=== PATIENT | male | born 1950 | race Caucasian/White ===

== ENCOUNTER 2018-11-11 19:57 | Inpatient (IN) | payer MEDICARE ==
[~2018-11-11] VITALS: Ht 170.2 cm; Wt 87.7 kg
[2018-11-11] MEDS ORDERED: PIPERACILLIN/TAZ 3.375G PREMIX 50 ML IV ONE (21:15)
[2018-11-11] MEDS ORDERED: VANCOMYCIN 1 G PREMIX 200 ML IV ONE (21:15)
[2018-11-11] MEDS ORDERED: SODIUM CHLORIDE 0.9% 1000ML BAG (SEPSIS BOLUS) IV ONE (21:15)
[2018-11-11 21:33] LABS: CHLORIDE 108 mEq/L (98-107)
[2018-11-11 21:34] LABS: INR 1.1; PROTHROMBIN TIME 11.6 sec (9.6-11.0)
[2018-11-11 21:37] LABS: ETHANOL BLOOD < 10 mg/dL
[2018-11-11 21:41] LABS: HEMATOCRIT. 38.2 % (42.0-52.0); HEMOGLOBIN. 13.9 g/dL (14.0-18.0); MEAN CORPUSCULAR HEMOGLOBIN 42.4 pg (28.0-32.0); MEAN CORPUSCULAR VOLUME 116.9 fL (80.0-94.0); MEAN PLATELET VOLUME 7.8 fl (7.4-10.4); PLATELET 95 x1000/uL (130-400); RED BLOOD CELL COUNT 3.27 mill/uL (4.7-6.1); RED CELL DISTRIBUTION WIDTH 14.7 % (11.6-14.6)
[2018-11-11 21:47] LABS: PLATELET ESTIMATE DECREASED
[2018-11-11 22:01] LABS: CLARITY URINE CLEAR (CLEAR); COLOR URINE YELLOW (YELLOW); KETONES URINE TRACE (NEGATIVE); LEUKOCYTE ESTERASE URINE NEGATIVE (NEGATIVE); NITRITE URINE NEGATIVE (NEGATIVE); OCCULT BLOOD URINE 1+ (NEGATIVE); PROTEIN URINE NEGATIVE (NEGATIVE)
[2018-11-11 22:20] LABS: *AMPHETAMINES SCREEN URINE NEGATIVE (NEGATIVE); *COCAINE SCREEN URINE NEGATIVE (NEGATIVE); CANNABINOID URINE SCREEN NEGATIVE (NEGATIVE); METHADONE URINE SCREEN NEGATIVE (NEGATIVE); OPIATES URINE SCREEN NEGATIVE (NEGATIVE); PHENCYCLIDINE URINE SCREEN NEGATIVE (NEGATIVE)
[2018-11-11 22:21] LABS: *BARBITURATES SCREEN URINE NEGATIVE (NEGATIVE); *BENZODIAZEPINES SCREEN URINE NEGATIVE (NEGATIVE)
[2018-11-12] VITALS (33 sets, daily range): BP systolic 107–140; BP diastolic 51–111
[2018-11-12] MEDS ORDERED: SODIUM CHLORIDE 0.9% 1,000 ML IV ONE (00:20)
[2018-11-12] MEDS ORDERED: ACETAMINOPHEN 500MG TABLET PO ONE (00:30)
[2018-11-12] MEDS ORDERED: NOREPINEPHRINE 4MG/250ML PMX 250 ML IV ONE (00:45)
[2018-11-12] MEDS: ACETAMINOPHEN 325MG TABLET PO PRN ×2 (06:23→12:02)
[2018-11-12] MEDS: SODIUM CHLORIDE 0.9% 1,000 ML IV SCH ×2 (06:23→17:50)
[2018-11-12] MEDS ORDERED: FOLI1TAB3 MT (07:03)
[2018-11-12] MEDS ORDERED: CALC-1042 MT (07:03)
[2018-11-12] MEDS ORDERED: [UNRECOGNIZED DRUG - OTHER] (07:03)
[2018-11-12] MEDS ORDERED: PRED5TAB48 PO (07:03)
[2018-11-12 07:40] LABS: CHLORIDE 113 mEq/L (98-107)
[2018-11-12 07:42] LABS: BASOPHILS % 0.4 % (0.0-2.0); EOSINOPHILS % 1.3 % (0.0-5.0); HEMATOCRIT. 34.3 % (42.0-52.0); HEMOGLOBIN. 12.3 g/dL (14.0-18.0); LYMPHOCYTES % 7.6 % (20.0-50.0); MEAN CORPUSCULAR HEMOGLOBIN 42.3 pg (28.0-32.0); MEAN CORPUSCULAR VOLUME 117.6 fL (80.0-94.0); MEAN PLATELET VOLUME 7.9 fl (7.4-10.4); MONOCYTES % 12.3 % (2.0-8.0); NEUTROPHILS % 78.4 % (40.0-76.0); PLATELET 76 x1000/uL (130-400); RED BLOOD CELL COUNT 2.92 mill/uL (4.7-6.1); RED CELL DISTRIBUTION WIDTH 14.8 % (11.6-14.6)
[2018-11-12] MEDS ORDERED: ENOXAPARIN 40MG/0.4ML SYR SUBCUT SCH (09:00)
[2018-11-12] MEDS: PIPERACILLIN/TAZ 3.375G PREMIX 50 ML IV SCH ×3 (09:11→22:02)
[2018-11-12] MEDS: ASPIRIN 81MG TABLET PO SCH (09:43)
[2018-11-12] MEDS ORDERED: PIPERACILLIN/TAZOBACTAM 3.375GM/50ML PREMIX IV ONE (12:00)
[2018-11-12 13:45] LABS: T4 FREE 0.78 ng/dL (0.76-1.46)
[2018-11-12] MEDS ORDERED: IPRATROPIUM/ALBUTEROL 0.5-3(2.5)MG/3ML NEB HHN PRN (13:45)
[2018-11-12] MEDS ORDERED: LORAZEPAM 2MG/ML CPJ IV PRN (13:45)
[2018-11-12 17:27] LABS: CREATINE KINASE MB FRACTION 1.3 ng/mL (0.5-3.6)
[2018-11-12] MEDS: FAMOTIDINE 20MG TABLET PO SCH (17:51)
[2018-11-13] VITALS: BP 129/63
[2018-11-13 00:40] LABS: CREATINE KINASE 87 IU/L (39-308)
[2018-11-13 00:41] LABS: CREATINE KINASE MB FRACTION < 1.0 ng/mL (0.5-3.6)
[2018-11-13] MEDS: PIPERACILLIN/TAZ 3.375G PREMIX 50 ML IV SCH ×2 (05:48→09:08)
[2018-11-13 06:00] VITALS: BP 129/72
[2018-11-13 07:46] LABS: CREATINE KINASE 85 IU/L (39-308)
[2018-11-13 07:48] LABS: CREATINE KINASE MB FRACTION < 1.0 ng/mL (0.5-3.6)
[2018-11-13 08:00] VITALS: BP 119/68
[2018-11-13] MEDS: ASPIRIN 81MG TABLET PO SCH (09:08)
[2018-11-13] MEDS: SODIUM CHLORIDE 0.9% 1,000 ML IV SCH (09:08)
[2018-11-13] MEDS: FAMOTIDINE 20MG TABLET PO SCH (09:08)
[2018-11-13 12:00] VITALS: BP 128/72
[2018-11-13 14:26] VITALS: BP 128/72
== END 2018-11-13 15:18 | disposition home or self-care (01) | DRG 871 ==
LOC: ER 22:29 → CVICU 22:45 → EDBEDREQTM 22:55 → EDBEDREQ 22:55 → EDBEDREQSVC 22:55 → EDBEDREQTM 11-12 00:22 → EDBEDREQSVC 11-12 00:22 → EDBEDREQDT 11-12 00:22 → ENRESERV 11-12 01:50 → 5WST 11-12 18:31
PROVIDERS: ADMIT Internal Medicine; ATTEND Internal Medicine
PROC: 05HM33Z Insertion of Infusion Device into Right Internal Jugular Vein, Percutaneous Approach (ICD-10-PCS; principal; 2018-11-11)
PROC: B543ZZA Ultrasonography of Right Jugular Veins, Guidance (ICD-10-PCS; 2018-11-11)
DX: A41.9 Sepsis, unspecified organism (principal); J69.0 Pneumonitis due to inhalation of food and vomit; J96.00 Acute respiratory failure, unspecified whether with hypoxia or hypercapnia; R65.21 Severe sepsis with septic shock; K76.6 Portal hypertension; M30.1 Polyarteritis with lung involvement [Churg-Strauss]; E87.2 Acidosis; I67.82 Cerebral ischemia; K74.60 Unspecified cirrhosis of liver; E86.9 Volume depletion, unspecified; D69.6 Thrombocytopenia, unspecified; D64.9 Anemia, unspecified; E78.5 Hyperlipidemia, unspecified; F41.9 Anxiety disorder, unspecified; I10 Essential (primary) hypertension; J45.909 Unspecified asthma, uncomplicated; K57.90 Diverticulosis of intestine, part unspecified, without perforation or abscess without bleeding; N28.1 Cyst of kidney, acquired; R16.1 Splenomegaly, not elsewhere classified; Z79.899 Other long term (current) drug therapy
CPT/HCPCS: 36415; 36556; 71045; 74176; 78582; 80048; 80061; 80305; 80320; 82140; 82550; 82553; 83036; 83605; 83880; 84145; 84439; 84443; 84484; 85379; 93005; 93306; 93970; 94640; 96365; 96367; 99291; A9558; J2543; J3370; J3490; J7030; J7620; G0480

== ENCOUNTER 2020-02-04 20:45 | Inpatient (IN) | payer MEDICARE ==
[~2020-02-04] VITALS: Ht 177.8 cm; Wt 82.7 kg
[~2020-02-04 20:45] MED LIST: CALC-1042 MT; FOLI1TAB3 MT; PRED5TAB48 PO; [UNRECOGNIZED DRUG - OTHER]
[2020-02-04 22:31] LABS: BASOPHILS % 0.1 % (0.0-2.0); EOSINOPHILS % 2.5 % (0.0-5.0); HEMATOCRIT. 27.2 % (42.0-52.0); HEMOGLOBIN. 8.5 g/dL (14.0-18.0); LYMPHOCYTES % 12.7 % (20.0-50.0); MEAN CORPUSCULAR HEMOGLOBIN 29.7 pg (28.0-32.0); MONOCYTES % 9.4 % (2.0-8.0); NEUTROPHILS % 75.3 % (40.0-76.0); PLATELET 75 x1000/uL (130-400); RED BLOOD CELL COUNT 2.87 mill/uL (4.7-6.1); RED CELL DISTRIBUTION WIDTH 20.3 % (11.6-14.6)
[2020-02-04 22:34] LABS: CHLORIDE 110 mEq/L (98-107)
[2020-02-05 02:15] VITALS: BP 139/63
[2020-02-05] MEDS ORDERED: P20 PO (03:44)
[2020-02-05 04:00] VITALS: BP 119/64
[2020-02-05] MEDS ORDERED: IPRATROPIUM/ALBUTEROL 0.5-3(2.5)MG/3ML NEB HHN PRN (07:00)
[2020-02-05 08:00] VITALS: BP 109/61
[2020-02-05] MEDS: FUROSEMIDE 40MG/4ML VIAL IVP SCH (10:01)
[2020-02-05 12:00] VITALS: BP 122/63
[2020-02-05 14:43] LABS: CLARITY URINE CLEAR (CLEAR); COLOR URINE YELLOW (YELLOW); KETONES URINE NEGATIVE (NEGATIVE); LEUKOCYTE ESTERASE URINE NEGATIVE (NEGATIVE); NITRITE URINE NEGATIVE (NEGATIVE); OCCULT BLOOD URINE NEGATIVE (NEGATIVE); PROTEIN URINE NEGATIVE (NEGATIVE); SPECIFIC GRAVITY URINE 1.011 (1.005-1.030); UROBILINOGEN URINE 0.2 E.U./dL (0.2-1.0)
[2020-02-05 16:00] VITALS: BP 124/65
[2020-02-05] MEDS: SPIRONOLACTONE 25MG TABLET PO SCH (16:49)
[2020-02-05 20:00] VITALS: BP 110/59
[2020-02-06] VITALS: BP 120/60
[2020-02-06 04:00] VITALS: BP 123/67
[2020-02-06 06:56] LABS: HEPATITIS B SURFACE ANTIGEN NEGATIVE
[2020-02-06 07:26] LABS: HEPATITIS A AB IGM NEGATIVE (NEGATIVE)
[2020-02-06 08:00] VITALS: BP 139/63
[2020-02-06] MEDS: FUROSEMIDE 40MG/4ML VIAL IVP SCH (08:49)
[2020-02-06] MEDS: SPIRONOLACTONE 25MG TABLET PO SCH (08:49)
[2020-02-06 12:00] VITALS: BP 106/58
[2020-02-06 13:37] LABS: INR 1.2; PROTHROMBIN TIME 12.2 sec (9.6-11.0)
[2020-02-06] MEDS ORDERED: BRIM5DRO6 EACHEYE (15:23)
[2020-02-06] MEDS ORDERED: DORZ10DR9 EACHEYE (15:23)
[2020-02-06 16:00] VITALS: BP 135/71
[2020-02-06 16:14] LABS: BASOPHILS % 0.4 % (0.0-2.0); EOSINOPHILS % 2.8 % (0.0-5.0); HEMATOCRIT. 28.3 % (42.0-52.0); HEMOGLOBIN. 9.1 g/dL (14.0-18.0); LYMPHOCYTES % 12.3 % (20.0-50.0); MEAN CORPUSCULAR HEMOGLOBIN 29.9 pg (28.0-32.0); MEAN PLATELET VOLUME 7.9 fl (7.4-10.4); MONOCYTES % 9.2 % (2.0-8.0); NEUTROPHILS % 75.3 % (40.0-76.0); PLATELET 70 x1000/uL (130-400); RED BLOOD CELL COUNT 3.05 mill/uL (4.7-6.1)
[2020-02-06] MEDS ORDERED: DORZOLAM/TIMOLOL 2.23/0.68% OPHTH DROPS 10ML EACHEYE SCH (17:00)
[2020-02-06] MEDS ORDERED: MEDICATION NOT ON FORMULARY EA (Brimonidine Tartrate 1 DROP) EACHEYE SCH (17:00)
[2020-02-06 20:00] VITALS: BP 127/67
[2020-02-06] MEDS: BRIMONIDINE 0.2% OPHTH DROPS 5ML BOTHEYE SCH (21:29)
[2020-02-06] MEDS: DORZOLAMIDE 2% OPHTH 10 ML BOTTLE BOTHEYE SCH (21:29)
[2020-02-07] VITALS: BP 100/62
[2020-02-07 04:00] VITALS: BP 110/69
[2020-02-07] MEDS: BRIMONIDINE 0.2% OPHTH DROPS 5ML BOTHEYE SCH (05:07)
[2020-02-07] MEDS: DORZOLAMIDE 2% OPHTH 10 ML BOTTLE BOTHEYE SCH (05:07)
[2020-02-07 07:28] LABS: BASOPHILS % 0.5 % (0.0-2.0); EOSINOPHILS % 3.7 % (0.0-5.0); HEMATOCRIT. 27.8 % (42.0-52.0); HEMOGLOBIN. 8.9 g/dL (14.0-18.0); MEAN CORPUSCULAR VOLUME 93.6 fL (80.0-94.0); MEAN PLATELET VOLUME 7.5 fl (7.4-10.4); MONOCYTES % 11.9 % (2.0-8.0); NEUTROPHILS % 66.9 % (40.0-76.0); PLATELET 61 x1000/uL (130-400); RED BLOOD CELL COUNT 2.97 mill/uL (4.7-6.1); RED CELL DISTRIBUTION WIDTH 21.1 % (11.6-14.6)
[2020-02-07 07:31] LABS: CHLORIDE 108 mEq/L (98-107)
[2020-02-07 08:00] VITALS: BP 109/61
[2020-02-07] MEDS: SPIRONOLACTONE 25MG TABLET PO SCH (09:59)
[2020-02-07] MEDS: FUROSEMIDE 40MG/4ML VIAL IVP SCH (10:07)
[2020-02-07 12:20] VITALS: BP 109/61
[2020-02-07 12:22] VITALS: BP 119/72
== END 2020-02-07 14:02 | disposition home or self-care (01) | DRG 433 ==
LOC: ER 20:45 → 6WST 02-05 01:03 → EDBEDREQ 02-05 01:08 → EDBEDREQTM 02-05 01:08 → EDBEDREQDT 02-05 01:08 → ENRESERV 02-05 01:43
PROVIDERS: ADMIT Internal Medicine; ATTEND Internal Medicine
DX: K70.31 Alcoholic cirrhosis of liver with ascites (principal); E44.1 Mild protein-calorie malnutrition; N49.2 Inflammatory disorders of scrotum; D69.6 Thrombocytopenia, unspecified; N28.1 Cyst of kidney, acquired; R74.0 Nonspecific elevation of levels of transaminase and lactic acid dehydrogenase [LDH]; F10.10 Alcohol abuse, uncomplicated; Y90.9 Presence of alcohol in blood, level not specified; R16.1 Splenomegaly, not elsewhere classified; I10 Essential (primary) hypertension; Z68.26 Body mass index [BMI] 26.0-26.9, adult; Z86.79 Personal history of other diseases of the circulatory system
CPT/HCPCS: 36415; 71045; 76700; 76870; 80053; 81003; 83036; 83880; 84484; 85025; 86705; 86709; 86803; 87340; 93005; 93306; 93976; 99285; J1940

== ENCOUNTER 2022-05-06 11:12 | Inpatient (IN) | payer MEDICARE ==
[~2022-05-06] VITALS: Ht 177.8 cm; Wt 84.4 kg
[~2022-05-06 11:12] MED LIST changes: +AZAT50TA24 PO; +BRESALTEC; +BRIM5DRO6 EACHEYE; +DORZ10DR8 EACHEYE; +DORZ10DR9 EACHEYE; +FE300LUD PO; +METF-414 PO; +METH2.5T PO; +ONDA4TAB50 PO; +OXYM30SP26 BOTHNSTRLS; +P20 PO; +PANADOL; +PRED10TA23 PO; -PRED5TAB48 PO; +SULI200T4 PO; +TIMO5DRO32 EACHEYE
[2022-05-06] MEDS ORDERED: ALBUTEROL (0.083%) 2.5MG/3ML NEB HHN STA ×2 (17:36→18:51)
[2022-05-06] MEDS ORDERED: IPRATROPIUM BROMIDE (0.02%) 0.5MG/2.5ML NEB HHN STA ×2 (17:36→18:51)
[2022-05-06] MEDS ORDERED: PREDNISONE 20MG TABLET PO STA (17:36)
[2022-05-06] MEDS ORDERED: MAGNESIUM 2 G PREMIX 50 ML IV ONE (19:00)
[2022-05-06 19:06] LABS: HEMATOCRIT. 39.3 % (42.0-52.0); HEMOGLOBIN. 14.1 g/dL (14.0-18.0); MEAN CORPUSCULAR HEMOGLOBIN 40.5 pg (28.0-32.0); MEAN PLATELET VOLUME 8.1 fl (7.4-10.4); PLATELET 100 x1000/uL (130-400); RED BLOOD CELL COUNT 3.48 mill/uL (4.7-6.1); RED CELL DISTRIBUTION WIDTH 14.8 % (11.6-14.6)
[2022-05-06 19:27] LABS: CHLORIDE 107 mEq/L (98-107)
[2022-05-07] VITALS (8 sets, daily range): BP systolic 112–135; BP diastolic 57–99
[2022-05-07] MEDS ORDERED: CLONIDINE 0.1MG TABLET PO PRN (04:30)
[2022-05-07] MEDS ORDERED: DEXTROSE 50% WATER 50ML SYRINGE IV PRN (04:30)
[2022-05-07] MEDS ORDERED: ACETAMINOPHEN 650MG/20.3ML UDC PO PRN (04:30)
[2022-05-07] MEDS ORDERED: METHYLPREDNISOLONE SOD SUCC 40 MG/ML VIAL IV SCH (04:30)
[2022-05-07] MEDS ORDERED: IPRATROPIUM/ALBUTEROL 0.5-3(2.5)MG/3ML NEB HHN PRN (04:30)
[2022-05-07 05:06] LABS: PLATELET ESTIMATE DECREASED
[2022-05-07] MEDS ORDERED: BLOOD SUGAR DIAGNOSTIC STRIP TEST SCH (06:40)
[2022-05-07] MEDS ORDERED: INSULIN LISPRO 100 UNITS/ML SUBCUT SCH (07:10)
[2022-05-07] MEDS ORDERED: BUDESONIDE 0.5MG/2ML NEB HHN SCH (08:00)
[2022-05-07] MEDS ORDERED: FAMOTIDINE 20MG TABLET PO SCH (09:00)
[2022-05-07] MEDS ORDERED: FAMO20TA8 MT (12:08)
[2022-05-07] MEDS ORDERED: ALBU18HF2 IH (12:08)
[2022-05-07] MEDS ORDERED: MED4 MT (12:08)
[2022-05-07 14:37] LABS: BASOPHILS % 0.3 % (0.0-2.0); EOSINOPHILS % 0.3 % (0.0-5.0); HEMATOCRIT. 35.2 % (42.0-52.0); HEMOGLOBIN. 12.5 g/dL (14.0-18.0); LYMPHOCYTES % 11.2 % (20.0-50.0); MEAN CORPUSCULAR HEMOGLOBIN 40.2 pg (28.0-32.0); MEAN CORPUSCULAR VOLUME 113.3 fL (80.0-94.0); MEAN PLATELET VOLUME 7.2 fl (7.4-10.4); MONOCYTES % 5.7 % (2.0-8.0); NEUTROPHILS % 82.5 % (40.0-76.0); PLATELET 72 x1000/uL (130-400); RED BLOOD CELL COUNT 3.11 mill/uL (4.7-6.1); RED CELL DISTRIBUTION WIDTH 14.6 % (11.6-14.6)
[2022-05-07 14:47] LABS: CHLORIDE 108 mEq/L (98-107)
[2022-05-07] MEDS ORDERED: INFLUENZA VACCINE 05/PF 0.5 ML SYRINGE IM ONE (15:00)
== END 2022-05-07 16:51 | disposition home or self-care (01) | DRG 189 ==
LOC: ER 11:12 → 7EST 22:43 → ENRESERV 05-07 01:17
PROVIDERS: ADMIT Internal Medicine; ATTEND Internal Medicine
DX: J96.00 Acute respiratory failure, unspecified whether with hypoxia or hypercapnia (principal); J45.901 Unspecified asthma with (acute) exacerbation; I10 Essential (primary) hypertension; E11.65 Type 2 diabetes mellitus with hyperglycemia; R74.01 Elevation of levels of liver transaminase levels; Z20.822 Contact with and (suspected) exposure to COVID-19; D72.10 Eosinophilia, unspecified; D69.6 Thrombocytopenia, unspecified; Z79.84 Long term (current) use of oral hypoglycemic drugs; Z79.899 Other long term (current) drug therapy
CPT/HCPCS: 36415; 71045; 80048; 80053; 82962; 83036; 83880; 84484; 85025; 87426; 93005; 94640; 99285; C9803; J1815; J2920; J3475; J7512

== ENCOUNTER 2023-07-16 17:30 | Emergency (ER) | payer MEDICARE ==
[~2023-07-16] VITALS: Ht 182.9 cm; Wt 81.0 kg
[~2023-07-16 17:30] MED LIST changes: +ALBU18HF2 IH; -BRESALTEC; +FAMO20TA8 MT; +MED4 MT; -PANADOL; -[UNRECOGNIZED DRUG - OTHER]
[2023-07-16 17:33] VITALS: BP 141/68; TEMP 98.3; O2SAT 95
[2023-07-16 18:08] LABS: HEMATOCRIT. 36.3 % (42.0-52.0); HEMOGLOBIN. 12.7 g/dL (14.0-18.0); MEAN CORPUSCULAR HEMOGLOBIN 39.5 pg (28.0-32.0); MEAN CORPUSCULAR HGB CONC 35.1 g/dL (31.0-37.0); MEAN CORPUSCULAR VOLUME 112.8 fL (80.0-94.0); MEAN PLATELET VOLUME 7.3 fl (7.4-10.4); PLATELET 101 x1000/uL (130-400); RED BLOOD CELL COUNT 3.22 mill/uL (4.7-6.1); RED CELL DISTRIBUTION WIDTH 16.1 % (11.6-14.6); WHITE BLOOD COUNT 7.1 x1000/uL (4.5-11.0)
[2023-07-16 18:11] LABS: DIFFERENTIAL COMMENT 1
[2023-07-16 18:13] LABS: CLARITY URINE CLEAR (CLEAR); COLOR URINE DARK YELLOW (YELLOW); GLUCOSE URINE NEGATIVE (NEGATIVE); KETONES URINE NEGATIVE (NEGATIVE); LEUKOCYTE ESTERASE URINE NEGATIVE (NEGATIVE); NITRITE URINE NEGATIVE (NEGATIVE); OCCULT BLOOD URINE 1+ (NEGATIVE); PROTEIN URINE NEGATIVE (NEGATIVE); SPECIFIC GRAVITY URINE 1.019 (1.005-1.030)
[2023-07-16 18:24] LABS: WBC URINE 0-2 /hpf (0-2)
[2023-07-16 18:25] LABS: BACTERIA URINE NONE SEEN; SQUAMOUS EPITHELIAL CELL URINE NONE SEEN /lpf (RARE/1+)
[2023-07-16 18:25] LABS: ALANINE AMINOTRANSFERASE 39 IU/L (10-49); ALBUMIN 3.1 g/dL (3.2-4.8); ASPARTATE AMINOTRANSFERASE 57 IU/L (<34); BILIRUBIN TOTAL 1.8 mg/dL (0.1-1.0); CALCIUM 8.6 mg/dL (8.7-10.4); CARBON DIOXIDE 24 mEq/L (21-32); CHLORIDE 107 mEq/L (98-107); CREATININE 0.7 mg/dL (0.6-1.3); GLUCOSE 113 mg/dL (70-105); POTASSIUM 3.9 mEq/L (3.5-5.1); PROTEIN TOTAL 6.2 g/dL (6.0-8.3); SODIUM 136 mEq/L (136-145); UREA NITROGEN BLOOD 11 mg/dL (9-23)
[2023-07-16 18:26] LABS: INR 1.2; PROTHROMBIN TIME 13.2 sec (9.6-11.0)
[2023-07-16 18:31] LABS: TROPONIN I HIGH SENSITIVITY < 4 ng/L (3.0-53)
[2023-07-16 18:41] LABS: ATYPICAL LYMPHOCYTES 1; PLATELET ESTIMATE NORMAL
[2023-07-16] MEDS ORDERED: IPRATROPIUM/ALBUTEROL 0.5-3(2.5)MG/3ML NEB HHN ONE (20:30)
[2023-07-16 22:34] VITALS: PULSE 104; RESP 18
[2023-07-16] MEDS ORDERED: DEXAMETHASONE 10 MG/ML VIAL PO ONE (22:45)
== END 2023-07-17 00:05 | disposition home or self-care (01) ==
LOC: ER 17:30
DX: J44.1 Chronic obstructive pulmonary disease with (acute) exacerbation (principal); E11.9 Type 2 diabetes mellitus without complications; I10 Essential (primary) hypertension; I77.6 Arteritis, unspecified
CPT/HCPCS: 99285; 71045; 80053; 81003; 85025; 85610; 84484; 36415; 94640; 93005; J1100

== ENCOUNTER 2024-07-02 14:03 | Emergency (ER) | payer MEDICARE ==
[~2024-07-02] VITALS: Ht 182.9 cm; Wt 92.0 kg
[~2024-07-02 14:03] MED LIST changes: -MED4 MT; +METH4TAB95 MT
[2024-07-02 14:15] VITALS: O2SAT 99
[2024-07-02 14:18] VITALS: BP 165/90; PULSE 89; RESP 18; TEMP 98.3; O2SAT 98
[2024-07-02] MEDS ORDERED: CEPH500C2 MT (16:56)
[2024-07-02] MEDS ORDERED: ONDA-239 PO (16:57)
== END 2024-07-02 17:11 | disposition home or self-care (01) ==
LOC: ER 14:03
DX: S80.821A Blister (nonthermal), right lower leg, initial encounter (principal); E11.9 Type 2 diabetes mellitus without complications; E78.5 Hyperlipidemia, unspecified; I10 Essential (primary) hypertension; J44.89 Other specified chronic obstructive pulmonary disease; Z96.659 Presence of unspecified artificial knee joint; X58.XXXA Exposure to other specified factors, initial encounter; Y93.89 Activity, other specified; Y92.89 Other specified places as the place of occurrence of the external cause; Y99.8 Other external cause status
CPT/HCPCS: 10060; 99283

== ENCOUNTER 2024-07-06 07:50 | Emergency (ER) | payer MEDICARE ==
[~2024-07-06] VITALS: Ht 177.8 cm; Wt 93.0 kg
[~2024-07-06 07:50] MED LIST changes: +CEPH500C2 MT; +ONDA-239 PO
[2024-07-06 10:43] LABS: HEMATOCRIT. 31.9 % (42.0-52.0); HEMOGLOBIN. 11.3 g/dL (14.0-18.0); MEAN CORPUSCULAR HEMOGLOBIN 43.4 pg (28.0-32.0); MEAN CORPUSCULAR HGB CONC 35.4 g/dL (31.0-37.0); MEAN CORPUSCULAR VOLUME 122.9 fL (80.0-94.0); MEAN PLATELET VOLUME 7.3 fl (7.4-10.4); PLATELET 129 x1000/uL (130-400); RED CELL DISTRIBUTION WIDTH 18.3 % (11.6-14.6); WHITE BLOOD COUNT 6.5 x1000/uL (4.5-11.0)
[2024-07-06 10:47] LABS: DIFFERENTIAL COMMENT 1
[2024-07-06] MEDS: PREDNISONE 20MG TABLET PO ONE (10:50)
[2024-07-06 10:52] LABS: CHLORIDE 107 mEq/L (98-107); POTASSIUM 4.1 mEq/L (3.5-5.1); SODIUM 139 mEq/L (136-145)
[2024-07-06 10:53] LABS: CARBON DIOXIDE 23 mEq/L (21-32)
[2024-07-06 10:54] LABS: CALCIUM 8.7 mg/dL (8.7-10.4)
[2024-07-06 10:58] LABS: CREATININE 0.7 mg/dL (0.6-1.3); GLUCOSE 147 mg/dL (70-105)
[2024-07-06 10:59] LABS: UREA NITROGEN BLOOD 13 mg/dL (9-23)
[2024-07-06 11:00] LABS: ALANINE AMINOTRANSFERASE 40 IU/L (10-49); ASPARTATE AMINOTRANSFERASE 45 IU/L (<34)
[2024-07-06 11:01] LABS: BILIRUBIN TOTAL 3.2 mg/dL (0.1-1.0); PROTEIN TOTAL 5.7 g/dL (6.0-8.3)
[2024-07-06 11:05] VITALS: PULSE 78; RESP 24; O2SAT 98
[2024-07-06] MEDS: IPRATROPIUM BROMIDE (0.02%) 0.5MG/2.5ML NEB HHN ONE (11:05)
[2024-07-06] MEDS: ALBUTEROL (0.083%) 2.5MG/3ML NEB HHN ONE (11:05)
[2024-07-06 11:59] LABS: ANISOCYTOSIS 1+; PLATELET ESTIMATE SLIGHTLY DECREASED
[2024-07-06] MEDS ORDERED: ALBU18HF2 IH (13:39)
[2024-07-06] MEDS ORDERED: PRED10TA MT (13:39)
[2024-07-06 13:41] VITALS: BP 141/67; PULSE 73; RESP 18; TEMP 36.83628; O2SAT 97
[2024-07-07] MEDS ORDERED: P50 MT (08:26)
== END 2024-07-06 15:08 | disposition home or self-care (01) ==
LOC: ER 07:50
DX: J45.901 Unspecified asthma with (acute) exacerbation (principal); S80.821A Blister (nonthermal), right lower leg, initial encounter; E11.9 Type 2 diabetes mellitus without complications; I10 Essential (primary) hypertension; J45.909 Unspecified asthma, uncomplicated; Z98.890 Other specified postprocedural states; Z79.899 Other long term (current) drug therapy; X58.XXXA Exposure to other specified factors, initial encounter; Y93.89 Activity, other specified; Y92.89 Other specified places as the place of occurrence of the external cause; Y99.8 Other external cause status
CPT/HCPCS: 99285; 71045; 80053; 83880; 85025; 85651; 36415; 94640; 93005; J7512; 94070

== ENCOUNTER 2024-07-07 06:32 | Emergency (ER) | payer MEDICARE ==
[~2024-07-07] VITALS: Ht 177.8 cm; Wt 87.0 kg
[~2024-07-07 06:32] MED LIST changes: +PRED10TA MT
[2024-07-07 06:35] VITALS: O2SAT 100
[2024-07-07] MEDS: ALBUTEROL (0.083%) 2.5MG/3ML NEB HHN SCH (07:45)
[2024-07-07] MEDS: IPRATROPIUM BROMIDE (0.02%) 0.5MG/2.5ML NEB HHN STA (07:45)
[2024-07-07] MEDS: PREDNISONE 20MG TABLET PO ONE (07:54)
[2024-07-07] MEDS ORDERED: P50 MT (08:26)
[2024-07-07 09:15] VITALS: BP 120/58; PULSE 72; RESP 13; TEMP 36.89184; O2SAT 99
== END 2024-07-07 10:43 | disposition home or self-care (01) ==
LOC: ER 06:52
DX: J45.901 Unspecified asthma with (acute) exacerbation (principal); I10 Essential (primary) hypertension; E11.9 Type 2 diabetes mellitus without complications; Z96.659 Presence of unspecified artificial knee joint; Z79.899 Other long term (current) drug therapy
CPT/HCPCS: 99291; 71045; 94640; 93005; J7512; A4663; A4606

== ENCOUNTER 2024-10-01 08:56 | Inpatient (IN) | payer OTHER, MEDICARE ==
[2024-10-01] VITALS (10 sets, daily range): BP systolic 90–103; BP diastolic 57–60; PULSE 70–88; RESP 17–20; TEMP 36.2–36.3; O2SAT 94–99
[~2024-10-01] VITALS: Ht 177.8 cm; Wt 32.7 kg
[~2024-10-01 08:56] MED LIST changes: +ALBU2.5V13 NEB; +APIX5TAB PO; +FERR-63 PO; +FOLI-43 PO; -FOLI1TAB3 MT; +FURO40TA5 PO; +MECL-299 PO; +METF-1149 PO; -METF-414 PO; -METH4TAB95 MT; -ONDA4TAB50 PO; -OXYM30SP26 BOTHNSTRLS; -P20 PO; -PRED10TA MT; -PRED10TA23 PO; +PROP10TA10 PO; +SPIR100T5 PO
[2024-10-01] MEDS: IPRATROPIUM BROMIDE (0.02%) 0.5MG/2.5ML NEB HHN STA (09:45)
[2024-10-01] MEDS: ALBUTEROL (0.083%) 2.5MG/3ML NEB HHN SCH (09:46)
[2024-10-01] MEDS: METHYLPREDNISOLONE SOD SUCC 125MG/2ML (ACT-O-VIAL) IV STA (09:56)
[2024-10-01 10:01] LABS: HEMATOCRIT. 31.6 % (42.0-52.0); HEMOGLOBIN. 10.8 g/dL (14.0-18.0); MEAN CORPUSCULAR HEMOGLOBIN 41.3 pg (28.0-32.0); MEAN CORPUSCULAR HGB CONC 34.2 g/dL (31.0-37.0); MEAN CORPUSCULAR VOLUME 120.8 fL (80.0-94.0); MEAN PLATELET VOLUME 6.9 fl (7.4-10.4); PLATELET 109 x1000/uL (130-400); RED BLOOD CELL COUNT 2.61 mill/uL (4.7-6.1); RED CELL DISTRIBUTION WIDTH 17.8 % (11.6-14.6); WHITE BLOOD COUNT 7.6 x1000/uL (4.5-11.0)
[2024-10-01 10:08] LABS: CHLORIDE 104 mEq/L (98-107); DIFFERENTIAL COMMENT 1; POTASSIUM 4.7 mEq/L (3.5-5.1); SODIUM 132 mEq/L (136-145)
[2024-10-01 10:09] LABS: CALCIUM 8.8 mg/dL (8.7-10.4); CARBON DIOXIDE 21 mEq/L (21-32)
[2024-10-01 10:14] LABS: CREATININE 1.3 mg/dL (0.6-1.3); GLUCOSE 95 mg/dL (70-105); UREA NITROGEN BLOOD 18 mg/dL (9-23)
[2024-10-01 10:15] LABS: TROPONIN I HIGH SENSITIVITY 4 ng/L (3.0-53)
[2024-10-01 10:16] LABS: ALANINE AMINOTRANSFERASE 21 IU/L (10-49); ALBUMIN 2.7 g/dL (3.2-4.8); ASPARTATE AMINOTRANSFERASE 41 IU/L (<34); BILIRUBIN DIRECT 1.3 mg/dL (<=3.0); BILIRUBIN TOTAL 3.4 mg/dL (0.1-1.0); PROTEIN TOTAL 7.3 g/dL (6.0-8.3)
[2024-10-01] MEDS: AZITHROMYCIN 500MG/250ML 250 ML IV STA (12:11)
[2024-10-01] MEDS: CEFTRIAXONE 1GM/50ML 50 ML IV ONE (12:38)
[2024-10-01 12:41] LABS: ANISOCYTOSIS 1+; PLATELET ESTIMATE DECREASED
[2024-10-01] MEDS ORDERED: HYDROCODONE/ACETAMINOPHEN 5/325MG TABLET PO PRN (13:15)
[2024-10-01] MEDS ORDERED: NA PHOS,M-B/NA PHOS,DI-BA ENEMA 118ML PR PRN (13:15)
[2024-10-01] MEDS ORDERED: DOCUSATE SODIUM 100MG CAPSULE PO PRN (13:15)
[2024-10-01] MEDS ORDERED: ONDANSETRON HCL 4MG/2ML INJ IV PRN (13:15)
[2024-10-01] MEDS ORDERED: MAGNESIUM/ALUMINUM HYDROXIDE/SIMETHICONE 30ML UDC PO PRN (13:15)
[2024-10-01] MEDS ORDERED: CLONIDINE 0.1MG TABLET PO PRN (13:15)
[2024-10-01] MEDS ORDERED: ACETAMINOPHEN 325MG TABLET PO PRN ×2 (13:15)
[2024-10-01] MEDS ORDERED: DEXTROSE 50% WATER 50ML SYRINGE IV PRN (13:15)
[2024-10-01] MEDS: THIAMINE HCL 100MG TABLET PO SCH (14:38)
[2024-10-01] MEDS ORDERED: SODIUM CHLORIDE 0.9% 500 ML IV ONE (14:45)
[2024-10-01] MEDS ORDERED: CALCIUM CHLORIDE 1GM/10ML SYR IV NR (15:07)
[2024-10-01] MEDS ORDERED: INSULIN REGULAR (HUMULIN R) 1000UNITS/10ML VIAL IV NR (15:07)
[2024-10-01] MEDS ORDERED: SODIUM BICARBONATE 8.4% 50MEQ/50ML SYR IV NR (15:07)
[2024-10-01] MEDS ORDERED: DEXTROSE 50% WATER 50ML SYRINGE IV NR (15:07)
[2024-10-01] MEDS: IPRATROPIUM/ALBUTEROL 0.5-3(2.5)MG/3ML NEB HHN PRN (15:29)
[2024-10-01] MEDS: CARVEDILOL 3.125 MG TABLET PO NR (15:37)
[2024-10-01] MEDS: GUAIFENESIN 200MG/10ML SUGAR FREE UDC PO PRN (15:38)
[2024-10-01] MEDS: SODIUM CHLORIDE 0.9% 500 ML IV NR (16:10)
[2024-10-01] MEDS: BLOOD SUGAR DIAGNOSTIC STRIP TEST SCH (17:03)
[2024-10-01 18:41] LABS: INR 1.3; PARTIAL THROMBOPLASTIN TIME 33.8 sec (23.4-31.0); PROTHROMBIN TIME 13.8 sec (9.6-11.0)
[2024-10-01 18:42] LABS: CREATINE KINASE 47 IU/L (46-171)
[2024-10-01 18:49] LABS: TROPONIN I HIGH SENSITIVITY < 4 ng/L (3.0-53)
[2024-10-01 19:12] LABS: LACTIC ACID 3.1 mmol/L (0.4-2.0)
[2024-10-01] MEDS ORDERED: NALOXONE HCL 0.4MG/ML VIAL IV PRN (19:30)
[2024-10-01 20:29] LABS: CLARITY URINE CLEAR (CLEAR); COLOR URINE ORANGE (YELLOW); GLUCOSE URINE NEGATIVE (NEGATIVE); KETONES URINE TRACE (NEGATIVE); LEUKOCYTE ESTERASE URINE TRACE (NEGATIVE); NITRITE URINE NEGATIVE (NEGATIVE); OCCULT BLOOD URINE TRACE (NEGATIVE); PROTEIN URINE TRACE (NEGATIVE); SPECIFIC GRAVITY URINE 1.023 (1.005-1.030); UROBILINOGEN URINE 0.2 E.U./dL (0.2-1.0)
[2024-10-01] MEDS: SODIUM CHLORIDE 0.9% 1,000 ML IV NR (20:32)
[2024-10-01 20:46] LABS: *AMPHETAMINES SCREEN URINE NEGATIVE (NEGATIVE); *BARBITURATES SCREEN URINE NEGATIVE (NEGATIVE); *BENZODIAZEPINES SCREEN URINE NEGATIVE (NEGATIVE); *COCAINE SCREEN URINE NEGATIVE (NEGATIVE); CANNABINOID URINE SCREEN NEGATIVE (NEGATIVE); METHADONE URINE SCREEN NEGATIVE (NEGATIVE); OPIATES URINE SCREEN NEGATIVE (NEGATIVE)
[2024-10-01 20:47] LABS: ECSTASY MDMA SCREEN URINE NEGATIVE (NEGATIVE); PHENCYCLIDINE URINE SCREEN NEGATIVE (NEGATIVE)
[2024-10-01] MEDS: ENOXAPARIN 40MG/0.4ML SYR SUBCUT SCH (20:56)
[2024-10-01 21:25] LABS: BACTERIA URINE TRACE; RBC URINE 0-2 /hpf (0-2); SQUAMOUS EPITHELIAL CELL URINE NONE SEEN /lpf (RARE/1+); WBC URINE 0-2 /hpf (0-2)
[2024-10-01] MEDS: ALBUMIN HUMAN 25GM/100ML (25%) IV NR (21:36)
[2024-10-01] MEDS: FAMOTIDINE 20MG TABLET PO SCH (21:36)
[2024-10-01] MEDS: METHYLPREDNISOLONE SOD SUCC 125MG/2ML (ACT-O-VIAL) IV SCH (21:37)
[2024-10-01] MEDS: IPRATROPIUM/ALBUTEROL 0.5-3(2.5)MG/3ML NEB HHN SCH (21:45)
[2024-10-01] MEDS: IPRATROPIUM/ALBUTEROL 0.5-3(2.5)MG/3ML NEB HHN NR (21:45)
[2024-10-01] MEDS: BUDESONIDE 0.5MG/2ML NEB HHN SCH (21:46)
[2024-10-01 22:15] LABS: CREATINE KINASE 41 IU/L (46-171); TROPONIN I HIGH SENSITIVITY < 4 ng/L (3.0-53)
[2024-10-02] VITALS (9 sets, daily range): BP systolic 86–97; BP diastolic 47–65; PULSE 70–86; RESP 14–20; TEMP 36–36.4; O2SAT 96–99
[2024-10-02] MEDS: DEXT 5%/0.9% NACL 1,000 ML IV SCH (01:32)
[2024-10-02] MEDS: MIDODRINE HCL 5MG TABLET PO SCH (05:34)
[2024-10-02 12:15] LABS: BASOPHILS % 0.1 % (0.0-2.0); HEMOGLOBIN. 8.4 g/dL (14.0-18.0); LYMPHOCYTES % 8.2 % (20.0-50.0); MEAN CORPUSCULAR HEMOGLOBIN 40.4 pg (28.0-32.0); MEAN CORPUSCULAR HGB CONC 33.8 g/dL (31.0-37.0); MEAN CORPUSCULAR VOLUME 119.6 fL (80.0-94.0); MEAN PLATELET VOLUME 7.1 fl (7.4-10.4); MONOCYTES % 5.1 % (2.0-8.0); NEUTROPHILS % 86.6 % (40.0-76.0); PLATELET 54 x1000/uL (130-400); RED BLOOD CELL COUNT 2.09 mill/uL (4.7-6.1); RED CELL DISTRIBUTION WIDTH 17.9 % (11.6-14.6); WHITE BLOOD COUNT 3.6 x1000/uL (4.5-11.0)
[2024-10-02 12:24] LABS: DIFFERENTIAL COMMENT 1
[2024-10-02 12:25] LABS: ADD RBC MORPHOLOGY NO
[2024-10-02 12:27] LABS: CALCIUM 8.4 mg/dL (8.7-10.4); CARBON DIOXIDE 19 mEq/L (21-32); CHLORIDE 105 mEq/L (98-107); POTASSIUM 4.8 mEq/L (3.5-5.1); SODIUM 132 mEq/L (136-145)
[2024-10-02 12:30] LABS: INR 1.3; PROTHROMBIN TIME 13.5 sec (9.6-11.0)
[2024-10-02 12:31] LABS: AMMONIA < 17 uMol/L (<32)
[2024-10-02 12:32] LABS: CREATININE 1.2 mg/dL (0.6-1.3); GLUCOSE 113 mg/dL (70-105); IRON 61 ug/dL (65-175)
[2024-10-02 12:33] LABS: LDL CHOLESTEROL 62 mg/dL (5-100); TRIGLYCERIDE 88 mg/dL (0-150); UREA NITROGEN BLOOD 26 mg/dL (9-23)
[2024-10-02 12:34] LABS: ALANINE AMINOTRANSFERASE 16 IU/L (10-49); ALBUMIN 2.5 g/dL (3.2-4.8); ASPARTATE AMINOTRANSFERASE 26 IU/L (<34); T4 FREE 0.87 ng/dL (0.89-1.76)
[2024-10-02 12:35] LABS: BILIRUBIN DIRECT 0.6 mg/dL (<=3.0); BILIRUBIN TOTAL 1.4 mg/dL (0.1-1.0); CHOLESTEROL 102 mg/dL (<200); HDL CHOLESTEROL < 20 mg/dL (>55); PROTEIN TOTAL 6.4 g/dL (6.0-8.3); T4 FREE 0.84 ng/dL (0.89-1.76); THYROID STIMULATING HORMONE 0.53 uIU/mL (0.55-4.78); THYROID STIMULATING HORMONE 0.54 uIU/mL (0.55-4.78); TOTAL IRON BINDING CAPACITY 201 ug/dl (250-425)
[2024-10-02 13:09] LABS: FOLIC ACID (FOLATE) SERUM 13.91 ng/mL (>5.38)
[2024-10-02 13:12] LABS: FERRITIN 88 ng/mL (22-322); VITAMIN B12 SERUM 1738 pg/mL (211-911)
[2024-10-02 13:21] LABS: HEPATITIS B SURFACE ANTIGEN NEGATIVE (Negative)
[2024-10-02 13:42] LABS: HEPATITIS A AB IGM NEGATIVE (Negative); HEPATITIS B CORE AB IGM NEGATIVE (Negative)
[2024-10-02 13:43] LABS: HEPATITIS C AB NON REACTIVE (Neg) (Negative)
[2024-10-02] MEDS: ALBUMIN HUMAN 25GM/100ML (25%) IV NR (16:35)
[2024-10-03] VITALS (13 sets, daily range): BP systolic 92–111; BP diastolic 51–63; PULSE 66–88; RESP 16–20; TEMP 36.3–37.16964; O2SAT 95–100
[2024-10-03 03:52] LABS: CHLORIDE 109 mEq/L (98-107); POTASSIUM 4.7 mEq/L (3.5-5.1); SODIUM 135 mEq/L (136-145)
[2024-10-03 03:53] LABS: CALCIUM 8.5 mg/dL (8.7-10.4); CARBON DIOXIDE 20 mEq/L (21-32)
[2024-10-03 03:58] LABS: GLUCOSE 157 mg/dL (70-105)
[2024-10-03 03:59] LABS: UREA NITROGEN BLOOD 25 mg/dL (9-23)
[2024-10-03 04:01] LABS: PHOSPHORUS 3.2 mg/dL (2.5-4.9)
[2024-10-03 04:27] LABS: BASOPHILS % 0.1 % (0.0-2.0); EOSINOPHILS % 0.2 % (0.0-5.0); HEMATOCRIT. 24.3 % (42.0-52.0); LYMPHOCYTES % 7.8 % (20.0-50.0); MEAN CORPUSCULAR HEMOGLOBIN 40.5 pg (28.0-32.0); MEAN CORPUSCULAR HGB CONC 33.2 g/dL (31.0-37.0); MEAN CORPUSCULAR VOLUME 121.9 fL (80.0-94.0); MEAN PLATELET VOLUME 7.7 fl (7.4-10.4); MONOCYTES % 3.1 % (2.0-8.0); NEUTROPHILS % 88.8 % (40.0-76.0); RED BLOOD CELL COUNT 1.99 mill/uL (4.7-6.1); RED CELL DISTRIBUTION WIDTH 17.9 % (11.6-14.6); WHITE BLOOD COUNT 2.2 x1000/uL (4.5-11.0)
[2024-10-03 04:32] LABS: INR 1.4; PROTHROMBIN TIME 14.6 sec (9.6-11.0)
[2024-10-03] MEDS: ALBUMIN HUMAN 12.5G/250ML (5%) IV NR (05:45)
[2024-10-03] MEDS ORDERED: ALBUMIN HUMAN 25GM/100ML (25%) IV NR (06:00)
[2024-10-03] MEDS: PHYTONADIONE 10MG/ML INJ SUBCUT NR (07:12)
[2024-10-03 07:35] LABS: DIFFERENTIAL COMMENT 1
[2024-10-03 07:39] LABS: PLATELET 47 x1000/uL (130-400)
[2024-10-03] MEDS: BENZONATATE 100MG CAPSULE PO NR (11:47)
[2024-10-04] VITALS (9 sets, daily range): BP systolic 94–121; BP diastolic 53–68; PULSE 18–98; RESP 17–18; TEMP 35.9–36.4; O2SAT 95–100
[2024-10-04 07:04] LABS: HEMATOCRIT. 22.6 % (42.0-52.0); HEMOGLOBIN. 7.7 g/dL (14.0-18.0); MEAN CORPUSCULAR HEMOGLOBIN 40.7 pg (28.0-32.0); MEAN CORPUSCULAR VOLUME 119.8 fL (80.0-94.0); MEAN PLATELET VOLUME 7.2 fl (7.4-10.4); RED BLOOD CELL COUNT 1.89 mill/uL (4.7-6.1); RED CELL DISTRIBUTION WIDTH 17.3 % (11.6-14.6)
[2024-10-04 07:07] LABS: CARBON DIOXIDE 20 mEq/L (21-32); CHLORIDE 110 mEq/L (98-107); POTASSIUM 4.2 mEq/L (3.5-5.1); SODIUM 136 mEq/L (136-145)
[2024-10-04 07:09] LABS: CALCIUM 8.6 mg/dL (8.7-10.4)
[2024-10-04 07:13] LABS: CREATININE 0.8 mg/dL (0.6-1.3); GLUCOSE 147 mg/dL (70-105); UREA NITROGEN BLOOD 24 mg/dL (9-23)
[2024-10-04 08:02] LABS: DIFFERENTIAL COMMENT 1
[2024-10-04 08:07] LABS: WHITE BLOOD COUNT 1.4 x1000/uL (4.5-11.0)
[2024-10-04] MEDS: SODIUM BICARBONATE 4% 2.4MEQ/5ML VIAL IV ONE (09:35)
[2024-10-04] MEDS: LIDOCAINE HCL 1% 10 MG/ML 10ML VIAL ONE (09:35)
[2024-10-04] MEDS: DOCUSATE SODIUM 250MG CAPSULE PO PRN (09:53)
[2024-10-04 15:50] LABS: ANISOCYTOSIS 1+; PLATELET 41 x1000/uL (130-400); PLATELET ESTIMATE MARKEDLY DECREASED
[2024-10-04 18:17] LABS: HEMATOCRIT 24.9 % (42.0-52.0); HEMOGLOBIN 8.3 g/dL (14.0-18.0)
[2024-10-05] VITALS: BP 103/58; PULSE 93; RESP 18; TEMP 36.6; O2SAT 96
[2024-10-05 02:14] VITALS: PULSE 93; RESP 18
[2024-10-05 04:00] VITALS: BP 118/74; PULSE 98; RESP 16; TEMP 36.5; O2SAT 99
[2024-10-05 07:49] LABS: CHLORIDE 108 mEq/L (98-107); POTASSIUM 4.5 mEq/L (3.5-5.1); SODIUM 136 mEq/L (136-145)
[2024-10-05 07:50] LABS: CARBON DIOXIDE 19 mEq/L (21-32)
[2024-10-05 07:51] LABS: CALCIUM 8.8 mg/dL (8.7-10.4)
[2024-10-05 07:55] LABS: CREATININE 1.1 mg/dL (0.6-1.3); GLUCOSE 191 mg/dL (70-105)
[2024-10-05 07:56] LABS: BASOPHILS % 0.1 % (0.0-2.0); HEMATOCRIT. 25.3 % (42.0-52.0); HEMOGLOBIN. 8.5 g/dL (14.0-18.0); LYMPHOCYTES % 7.1 % (20.0-50.0); MEAN CORPUSCULAR HEMOGLOBIN 40.6 pg (28.0-32.0); MEAN CORPUSCULAR HGB CONC 33.5 g/dL (31.0-37.0); MONOCYTES % 7.7 % (2.0-8.0); NEUTROPHILS % 85.1 % (40.0-76.0); PLATELET 57 x1000/uL (130-400); RED BLOOD CELL COUNT 2.09 mill/uL (4.7-6.1); RED CELL DISTRIBUTION WIDTH 17.9 % (11.6-14.6); UREA NITROGEN BLOOD 29 mg/dL (9-23); WHITE BLOOD COUNT 2.6 x1000/uL (4.5-11.0)
[2024-10-05 07:57] LABS: ALANINE AMINOTRANSFERASE 32 IU/L (10-49); ALBUMIN 2.7 g/dL (3.2-4.8); ASPARTATE AMINOTRANSFERASE 51 IU/L (<34)
[2024-10-05 07:58] LABS: PROTEIN TOTAL 6.2 g/dL (6.0-8.3)
[2024-10-05 08:00] VITALS: BP 107/63; PULSE 79; RESP 16; TEMP 36.7; O2SAT 98
[2024-10-05 08:12] LABS: DIFFERENTIAL COMMENT 1
[2024-10-05 12:00] VITALS: BP 117/67; PULSE 82; RESP 17; TEMP 36.7; O2SAT 98
[2024-10-05 12:42] VITALS: BP 117/67; PULSE 82; TEMP 98; O2SAT 98
[2024-10-07 15:11] LABS: ACTIN (SMOOTH MUSCLE) ANTIBODY 19 Units (0-19); MITOCHONDRIAL M2 AB <20.0 Units (0.0-20.0)
[2024-10-09 04:09] LABS: ANA IFA Negative (.)
== END 2024-10-05 13:57 | disposition home or self-care (01) | DRG 432 ==
LOC: ER 08:56 → 5WST 12:13
PROVIDERS: ADMIT Hospitalist; ATTEND Hospitalist
PROC: 0W9G3ZZ Drainage of Peritoneal Cavity, Percutaneous Approach (ICD-10-PCS; principal; 2024-10-02)
PROC: 06L38CZ Occlusion of Esophageal Vein with Extraluminal Device, Via Natural or Artificial Opening Endoscopic (ICD-10-PCS; 2024-10-03)
PROC: 30233R1 Transfusion of Nonautologous Platelets into Peripheral Vein, Percutaneous Approach (ICD-10-PCS; 2024-10-03)
DX: K70.31 Alcoholic cirrhosis of liver with ascites (principal); J96.01 Acute respiratory failure with hypoxia; I85.10 Secondary esophageal varices without bleeding; J44.1 Chronic obstructive pulmonary disease with (acute) exacerbation; E87.1 Hypo-osmolality and hyponatremia; N17.9 Acute kidney failure, unspecified; J45.901 Unspecified asthma with (acute) exacerbation; E44.0 Moderate protein-calorie malnutrition; K76.6 Portal hypertension; D84.821 Immunodeficiency due to drugs; D61.818 Other pancytopenia; Z68.1 Body mass index [BMI] 19.9 or less, adult; I95.9 Hypotension, unspecified; E07.81 Sick-euthyroid syndrome; D50.9 Iron deficiency anemia, unspecified; E88.09 Other disorders of plasma-protein metabolism, not elsewhere classified; E11.51 Type 2 diabetes mellitus with diabetic peripheral angiopathy without gangrene; I10 Essential (primary) hypertension; K31.89 Other diseases of stomach and duodenum; K40.20 Bilateral inguinal hernia, without obstruction or gangrene, not specified as recurrent; N28.1 Cyst of kidney, acquired; T50.995A Adverse effect of other drugs, medicaments and biological substances, initial encounter; N40.0 Benign prostatic hyperplasia without lower urinary tract symptoms; Z96.659 Presence of unspecified artificial knee joint; Z79.01 Long term (current) use of anticoagulants; Z79.60 Long term (current) use of unspecified immunomodulators and immunosuppressants; Z87.891 Personal history of nicotine dependence; Y92.89 Other specified places as the place of occurrence of the external cause
CPT/HCPCS: 36415; 49083; 71045; 74176; 76700; 80048; 80053; 80061; 80076; 80305; 81003; 82105; 82140; 82247; 82550; 82607; 82728; 82746; 82962; 83036; 83516; 83540; 83550; 83605; 83735; 83880; 84100; 84153; 84439; 84443; 84484; 85014; 85018; 85025; 85044; 86256; 86705; 86709; 86850; 86900; 87340; 93005; 93923; 94070; 94640; 94664; 99291; A4606; J0696; J1650; J2003; J2919; J3430; J3490; J7042; J7626; P9034; P9041; P9047